=== PATIENT | female | born 1965 | race Two or more races ===

== ENCOUNTER 2023-10-22 17:05 | Emergency (ER) | payer BC, OTHER ==
[~2023-10-22] VITALS: Ht 167.6 cm; Wt 74.0 kg
[2023-10-22 18:02] LABS: Anion Gap 6 (5-15); Carbon Dioxide 27 mmol/L (20-30); Chloride 106 mmol/L (98-107); Potassium 4.4 mmol/L (3.5-5.1); Sodium 139 mmol/L (136-145)
[2023-10-22 18:03] LABS: Basophils # (auto) 0 10 ^3/uL (0-0.2); Basophils % (auto) 0.4 % (0.0-2.0); Eosinophils # (auto) 0.1 10 ^3/uL (0-0.8); Eosinophils % (auto) 0.8 % (0.0-7.0); Hematocrit 43.7 % (36.0-46.0); Hemoglobin 14.3 g/dL (12.2-16.2); Lymphocytes # (auto) 2.7 10 ^3/uL (0.4-5.4); Lymphocytes % (auto) 27.6 % (10.0-50.0); Mean Corpuscular Hemoglobin 28.6 pg (28.0-32.0); Mean Corpuscular Hgb Conc. 32.8 g/dL (32.0-36.0); Mean Corpuscular Volume 87.3 fL (80.0-100.0); Monocytes # (auto) 0.6 10 ^3/uL (0-1.3); Neutrophils # (auto) 6.4 10 ^3/uL (1.6-8.6); Neutrophils % (auto) 65.2 % (37.0-80.0); Nucleated Red Blood Cells % 0.1 %; Red Cell Distribution Width 13.4 % (11.8-14.3); White Blood Cell 9.8 10^3/uL (4.4-10.8)
[2023-10-22 18:08] LABS: BUN/Creatinine Ratio 17.6 (10.0-20.0); Blood Alcohol 4.3 mg/dL (<10); Blood Urea Nitrogen 19 mg/dL (9-23); Glucose 130 mg/dL (74-106)
[2023-10-22 18:21] LABS: INR 0.98 (0.9-1.15); Prothrombin Time 10.3 sec (9.3-11.8)
[2023-10-22 18:58] VITALS: PULSE 72; RESP 12; O2SAT 94
[2023-10-22 20:58] VITALS: PULSE 74; RESP 14; O2SAT 98
[2023-10-22 23:01] LABS: Urine Bacteria NONE SEEN /hpf (None Seen); Urine Blood Negative /uL (Negative); Urine Clarity HAZY (Clear); Urine Protein, UAD TRACE (Negative); Urine Specific Gravity 1.021 (1.001-1.035); Urine Urobilinogen Normal (Negative); Urine WBC 197 /hpf (0 - 5)
[2023-10-22 23:02] LABS: Urine Color Straw (Yellow)
[2023-10-22 23:11] LABS: Amphetamine Screen, Urine Neg (NEGATIVE); Barbiturate Scree,Urine Neg (NEGATIVE); Benzodiazephine Screen, Urine Neg (NEGATIVE); Cannabinoid Screen, Urine Pos (NEGATIVE); Cocaine Screen, Urine Neg (NEGATIVE); Opiate Scree,Urine Neg (NEGATIVE); Phencyclidine Screen, Urine Neg (NEGATIVE)
[2023-10-22] MEDS ORDERED: CIPROFLOXACIN 400MG/200ML 200 ML IV ONE (23:15)
[2023-10-22 23:38] LABS: COVID19 ANTIGEN SOFIA FIA NEGATIVE (NEGATIVE)
[2023-10-23] MEDS ORDERED: SODIUM CHLORIDE 0.9% 1,000 ML IV ONE ×2 (00:30→02:45)
[2023-10-23 02:00] VITALS: TEMP 97.7
[2023-10-23] MEDS ORDERED: MECLIZINE HCL 25 MG TAB PO ONE (02:45)
[2023-10-23] MEDS ORDERED: cefTRIAXone 1GM/50ML D5W 50 ML IV ONE (02:45)
[2023-10-23 04:00] VITALS: BP 101/52; PULSE 61; RESP 12; O2SAT 61
== END 2023-10-23 04:00 | disposition home or self-care (01) ==
LOC: ER 17:05 → EDBD 17:05 → ER 10-23 04:00
DX: R41.82 Altered mental status, unspecified (principal); R42 Dizziness and giddiness; R51.9 Headache, unspecified; R53.1 Weakness; I10 Essential (primary) hypertension; F15.90 Other stimulant use, unspecified, uncomplicated; Z20.822 Contact with and (suspected) exposure to COVID-19; Z86.2 Personal history of diseases of the blood and blood-forming organs and certain disorders involving the immune mechanism; Z79.899 Other long term (current) drug therapy
CPT/HCPCS: 36415; 70450; 71045; 80048; 80307; 80320; 81001; 84484; 85025; 85610; 87426; 93005; 96361; 96365; 96366; 96367; 99285; J0696; J0744; J7030; J8597